=== PATIENT | male | born 1975 | race African-American/Black ===

== ENCOUNTER 2022-06-13 00:28 | Emergency (ER) | payer OTHER ==
[2022-06-13 00:35] VITALS: BP 174/108; PULSE 95; RESP 18; TEMP 98; BMI 27.9
== END 2022-06-13 04:11 | disposition home or self-care (01) ==
LOC: JER 00:28
DX: S22.31XA Fracture of one rib, right side, initial encounter for closed fracture (principal); W19.XXXA Unspecified fall, initial encounter
CPT/HCPCS: 71046-TC-FY; 99283-25